=== PATIENT | female | born 1955 | race Caucasian/White ===

== ENCOUNTER → 2016-12-09 | Outpatient (CLI) | payer OTHER ==
[2016-12-09 10:07] LABS: BASO % 0.6 % (0.0-1.0); EOS # 0.1 K/mm3 (0.0-0.50); EOS % 1.1 % (0.0-3.0); LARGE UNSTAINED CELL # 0.1 K/mm3 (0.0-0.4); LARGE UNSTAINED CELL % 1.7 % (0.0-4.0); LYMPH # 2.5 K/mm3 (1.5-4.5); LYMPH % 31.6 % (24.0-44.0); MEAN CORPUSCULAR HEMOGLOBIN 30.4 pg (27.0-33.0); MEAN CORPUSCULAR HGB CONC 34.1 g/dl (32.0-36.5); MEAN CORPUSCULAR VOLUME 89.1 fl (80.0-96.0); MONO # 0.4 K/mm3 (0.0-0.8); MONO % 5.2 % (0.0-5.0); NEUTROPHILS # 4.4 K/mm3 (1.8-7.7); NEUTROPHILS % 59.9 % (36.0-66.0); PLATELET COUNT, AUTOMATED 236 k/mm3 (150-450); RED CELL DISTRIBUTION WIDTH 12.9 % (11.5-14.5); WHITE BLOOD COUNT 7.4 K/mm3 (4.0-10.0)
[2016-12-09 10:33] LABS: ALBUMIN 3.5 GM/DL (3.2-5.2); ALBUMIN/GLOBULIN RATIO 1.06 (1.00-1.93); ALKALINE PHOSPHATASE 78 U/L (45-117); ALT/SGPT 18 U/L (12-78); ANION GAP 7 MEQ/L (8-16); AST/SGOT 17 U/L (15-37); BILIRUBIN,TOTAL 0.4 MG/DL (0.2-1.0); BLOOD UREA NITROGEN 18 MG/DL (7-18); CALCIUM LEVEL 8.1 MG/DL (8.5-10.1); CARBON DIOXIDE LEVEL 30 MEQ/L (21-32); CHLORIDE LEVEL 108 MEQ/L (98-107); CHOLESTEROL LEVEL 245 MG/DL (<200); CREATININE FOR GFR 0.74 MG/DL (0.55-1.02); FREE T4 1.15 NG/DL (0.76-1.46); GLOMERULAR FILTRATION RATE > 60.0 (>51); GLUCOSE, FASTING 85 MG/DL (70-105); POTASSIUM SERUM 4.3 MEQ/L (3.5-5.1); SODIUM LEVEL 145 MEQ/L (136-145); TOTAL PROTEIN 6.8 GM/DL (6.4-8.2); TRIGLYCERIDES LEVEL 133 MG/DL (<150)
== END ==
LOC: M WUC 08:03
PROVIDERS: ATTEND Family Medicine
DX: Z13.220 Encounter for screening for lipoid disorders (principal); Z13.29 Encounter for screening for other suspected endocrine disorder

== ENCOUNTER → 2016-12-13 | Outpatient (CLI) | payer OTHER ==
--- NOTE | 2016-12-13 14:36 | REPMRS ---
Patient History The patient states she has not had a clinical breast exam in over a year. Patient is postmenopausal. No known family history of cancer. Benign stereotatic loc for ea lesion of the right breast, May 22, 2012. Took hormonal contraceptives for 2 years. Took estrogen for 2 months. Taking progesterone for 17 years. Digital Woman Screen Mammo: December 13, 2016 - Exam #: [id number] Bilateral CC and MLO view(s) were taken. Technologist: Elsie Zimmerman, Technologist Prior study comparison: December 03, 2015, digital woman screen mammo performed at [facility]. August 12, 2014, bilateral bilat screen digital mammo, performed at [facility] ([facility]). June 13, 2013, bilateral bilat screen digital mammo, performed at [facility] ([facility]). FINDINGS: The breast tissue is almost entirely fat. There has been no change in the appearance of the mammogram from the prior studies. There is a needle biopsy marker clip in the right breast. There is no interval development of dominant mass, architectural distortion, or clustered microcalcification typical of malignancy. ASSESSMENT: BI-RADS/ACR category 1 mammogram. Negative. Recommendation Routine screening mammogram of both breasts in 1 year (for women over age 40). This mammogram was interpreted with the aid of an FDA-approved computer-aided dectection system. Electronically Signed By: Humphrey Gaming MD 12/13/16 [id number]
== END ==
LOC: M WHC 13:22
PROVIDERS: ATTEND Family Medicine
DX: Z12.31 Encounter for screening mammogram for malignant neoplasm of breast (principal)

== ENCOUNTER → 2017-01-03 | Outpatient (REF) | payer OTHER | LOC: M LAB REF 15:40 | PROVIDERS: ATTEND Internal Medicine Endocrinology, Diabetes & Metabolism | DX: E04.2 Nontoxic multinodular goiter (principal) ==

== ENCOUNTER → 2018-01-12 | Outpatient (CLI) | payer OTHER | LOC: M WHC 12:17 | DX: Z12.31 Encounter for screening mammogram for malignant neoplasm of breast (principal) ==

== ENCOUNTER → 2018-01-12 | Outpatient (CLI) | payer OTHER ==
[2018-01-12 09:00] LABS: BASO % 0.6 % (0.0-1.0); EOS # 0.2 10^3/uL (0.0-0.50); EOS % 2.8 % (0.0-3.0); HEMATOCRIT 42.7 % (36.0-47.0); HEMOGLOBIN 14.5 g/dl (12.0-15.5); IMMATURE GRANULOCYTE % 0.3 % (0-3.0); LYMPH # 2.6 10^3/uL (1.5-4.5); LYMPH % 39.3 % (24.0-44.0); MEAN CORPUSCULAR HEMOGLOBIN 29.5 pg (27.0-33.0); MONO # 0.5 10^3/uL (0.0-0.8); MONO % 7.7 % (0.0-5.0); NEUTROPHILS # 3.2 10^3/uL (1.8-7.7); NEUTROPHILS % 49.3 % (36.0-66.0); PLATELET COUNT, AUTOMATED 250 10^3/uL (150-450); RED BLOOD COUNT 4.91 10^6/uL (4.00-5.40); RED CELL DISTRIBUTION WIDTH 13.1 % (11.5-14.5); WHITE BLOOD COUNT 6.5 10^3/uL (4.0-10.0)
[2018-01-12 09:24] LABS: ALBUMIN 3.5 GM/DL (3.2-5.2); ALBUMIN/GLOBULIN RATIO 1.06 (1.00-1.93); ALKALINE PHOSPHATASE 78 U/L (45-117); ALT/SGPT 26 U/L (12-78); ANION GAP 6 MEQ/L (8-16); AST/SGOT 21 U/L (7-37); BILIRUBIN,TOTAL 0.3 MG/DL (0.2-1.0); BLOOD UREA NITROGEN 18 MG/DL (7-18); CALCIUM LEVEL 8.3 MG/DL (8.8-10.2); CARBON DIOXIDE LEVEL 29 MEQ/L (21-32); CHLORIDE LEVEL 109 MEQ/L (98-107); CHOLESTEROL LEVEL 263 MG/DL (<200); CHOLESTEROL RISK RATIO 5.156 (<5); CREATININE FOR GFR 0.69 MG/DL (0.55-1.30); FREE T4 1.05 NG/DL (0.76-1.46); GLOMERULAR FILTRATION RATE > 60.0 (>45); GLUCOSE, FASTING 87 MG/DL (70-100); HDL CHOLESTEROL 51 MG/DL (>40); LDL CHOLESTEROL 191.2 MG/DL (<100); NON-HDL-C 212 MG/DL; POTASSIUM SERUM 4.1 MEQ/L (3.5-5.1); SODIUM LEVEL 144 MEQ/L (136-145); TOTAL PROTEIN 6.8 GM/DL (6.4-8.2); TRIGLYCERIDES LEVEL 104 MG/DL (<150)
== END ==
LOC: M WUC 08:11
DX: Z13.220 Encounter for screening for lipoid disorders (principal); Z13.0 Encounter for screening for diseases of the blood and blood-forming organs and certain disorders involving the immune mechanism; Z13.29 Encounter for screening for other suspected endocrine disorder

== ENCOUNTER → 2018-10-15 | Outpatient (CLI) | payer OTHER ==
[2018-10-15 13:37] LABS: HEPATITIS B CORE ANTIBODY IGM NEGATIVE (NEGATIVE); HEPATITIS B SURFACE ANTIBODY NEGATIVE (POSITIVE); HEPATITIS B SURFACE ANTIGEN NEGATIVE (NEGATIVE); RUBELLA IgG QUALITATIVE IMMUNE (IMMUNE)
[2018-10-16 08:06] LABS: RUBEOLA IgG ANTIBODY >300.0 AU/mL (Immune >29.9)
== END ==
LOC: M WUC 10:26
PROVIDERS: ATTEND Physician Assistant
DX: Z02.1 Encounter for pre-employment examination (principal)

== ENCOUNTER → 2019-01-21 | Outpatient (CLI) | payer OTHER ==
--- NOTE | 2019-01-21 09:52 | REPMRS ---
Patient History The patient states she has not had a clinical breast exam in over a year. Patient is postmenopausal. No known family history of cancer. Benign stereotatic loc for ea lesion of the right breast, May 22, 2012. Took hormonal contraceptives for 2 years. Took estrogen for 2 months. Taking progesterone for 19 years. Digital Woman Screen Mammo: January 21, 2019 - Exam #: [id number] Bilateral CC and MLO view(s) were taken. Technologist: Triny Allen Technologist Prior study comparison: January 12, 2018, digital woman screen mammo performed at [facility]. December 13, 2016, digital woman screen mammo performed at [facility]. FINDINGS: There are scattered fibroglandular densities. There has been no change in the appearance of the mammogram from the prior studies. There is a mild amount of residual fibroglandular tissue which is fairly symmetric. There is no interval development of dominant mass, architectural distortion, or clustered microcalcification suggestive of malignancy. Assessment: BI-RADS/ACR category 1 mammogram. Negative Mammogram. Recommendation Routine screening mammogram in 1 year (for women over age 40). This mammogram was interpreted with the aid of an FDA-approved computer-aided dectection system. Electronically Signed By: Arnoldo Rider MD 01/21/19 0951
== END ==
LOC: M WHC 08:51
PROVIDERS: ATTEND Family Medicine
DX: Z12.31 Encounter for screening mammogram for malignant neoplasm of breast (principal); Z78.0 Asymptomatic menopausal state

== ENCOUNTER → 2019-01-31 | Outpatient (CLI) | payer OTHER ==
[2019-01-31 12:41] LABS: BASO % 0.6 % (0.0-1.0); EOS # 0.1 10^3/uL (0.0-0.50); EOS % 0.7 % (0.0-3.0); HEMATOCRIT 43.8 % (36.0-47.0); HEMOGLOBIN 14.5 g/dl (12.0-15.5); LYMPH # 2.5 10^3/uL (1.5-4.5); LYMPH % 36.7 % (24.0-44.0); MEAN CORPUSCULAR HEMOGLOBIN 29.3 pg (27.0-33.0); MEAN CORPUSCULAR HGB CONC 33.1 g/dl (32.0-36.5); MEAN CORPUSCULAR VOLUME 88.5 fl (80.0-96.0); MONO # 0.5 10^3/uL (0.0-0.8); MONO % 7.6 % (0.0-5.0); NEUTROPHILS # 3.6 10^3/uL (1.8-7.7); NEUTROPHILS % 53.5 % (36.0-66.0); PLATELET COUNT, AUTOMATED 255 10^3/uL (150-450); RED BLOOD COUNT 4.95 10^6/uL (4.00-5.40); WHITE BLOOD COUNT 6.8 10^3/uL (4.0-10.0)
[2019-01-31 12:48] LABS: ALBUMIN 3.5 GM/DL (3.2-5.2); ALT/SGPT 34 U/L (12-78); BILIRUBIN,TOTAL 0.4 MG/DL (0.2-1.0); BLOOD UREA NITROGEN 24 MG/DL (7-18); CALCIUM LEVEL 8.7 MG/DL (8.8-10.2); CARBON DIOXIDE LEVEL 28 MEQ/L (21-32); CHLORIDE LEVEL 108 MEQ/L (98-107); CHOLESTEROL LEVEL 307 MG/DL (<200); CHOLESTEROL RISK RATIO 6.265 (<5); CREATININE FOR GFR 0.69 MG/DL (0.55-1.30); FREE T4 1.12 NG/DL (0.76-1.46); GLOMERULAR FILTRATION RATE > 60.0 (>45); GLUCOSE, FASTING 88 MG/DL (70-100); HDL CHOLESTEROL 49 MG/DL (>40); LDL CHOLESTEROL 234 MG/DL (<100); NON-HDL-C 258 MG/DL; POTASSIUM SERUM 4.4 MEQ/L (3.5-5.1); SODIUM LEVEL 141 MEQ/L (136-145); TOTAL PROTEIN 7.1 GM/DL (6.4-8.2); TRIGLYCERIDES LEVEL 120 MG/DL (<150)
== END ==
LOC: M WUC 09:47
PROVIDERS: ATTEND Family Medicine
DX: Z13.220 Encounter for screening for lipoid disorders (principal); Z13.29 Encounter for screening for other suspected endocrine disorder; Z13.0 Encounter for screening for diseases of the blood and blood-forming organs and certain disorders involving the immune mechanism

== ENCOUNTER → 2019-12-03 | Outpatient (REF) | payer OTHER ==
[2019-12-03 13:23] LABS: APPEARANCE, URINE CLOUDY (CLEAR); BACTERIA, URINE AUTO 1+ (NEGATIVE); BILIRUBIN, URINE AUTO NEGATIVE (NEGATIVE); BLOOD, URINE BLOOD 1+ (NEGATIVE); COLOR, URINE AMBER (YELLOW); GLUCOSE, URINE (UA) AUTO NEGATIVE (NEGATIVE); KETONE, URINE AUTO NEGATIVE (NEGATIVE); LEUKOCYTE ESTERASE, URINE AUTO 2+ (NEGATIVE); MUCUS, URINE SMALL (NEGATIVE); NITRITE, URINE AUTO NEGATIVE (NEGATIVE); PROTEIN, URINE AUTO NEGATIVE (NEGATIVE); RBC, URINE AUTO 19 /HPF (0-3); SPECIFIC GRAVITY URINE AUTO 1.017 (1.002-1.035); SQUAMOUS EPITHELIAL CELL UR AU 2 /HPF (0-6); WBC, URINE AUTO 22 /HPF (0-3)
== END ==
LOC: M LAB REF 12:30
PROVIDERS: ATTEND Obstetrics & Gynecology
DX: N39.0 Urinary tract infection, site not specified (principal)

== ENCOUNTER → 2019-12-25 | Outpatient (REF) | payer OTHER ==
[2019-12-25 17:17] LABS: APPEARANCE, URINE CLOUDY (CLEAR); BACTERIA, URINE AUTO NEGATIVE (NEGATIVE); BILIRUBIN, URINE AUTO NEGATIVE (NEGATIVE); BLOOD, URINE BLOOD NEGATIVE (NEGATIVE); CALCIUM OXALATE CRYSTALS LARGE; COLOR, URINE YELLOW (YELLOW); GLUCOSE, URINE (UA) AUTO NEGATIVE (NEGATIVE); KETONE, URINE AUTO NEGATIVE (NEGATIVE); LEUKOCYTE ESTERASE, URINE AUTO 1+ (NEGATIVE); MUCUS, URINE SMALL (NEGATIVE); NITRITE, URINE AUTO NEGATIVE (NEGATIVE); PROTEIN, URINE AUTO NEGATIVE (NEGATIVE); RBC, URINE AUTO 3 /HPF (0-3); SQUAMOUS EPITHELIAL CELL UR AU 1 /HPF (0-6); UROBILINOGEN, URINE AUTO 0.2 mg/dL (0.0-2.0); WBC, URINE AUTO 56 /HPF (0-3)
== END ==
LOC: M LAB REF 16:45
PROVIDERS: ATTEND Obstetrics & Gynecology
DX: N39.0 Urinary tract infection, site not specified (principal)

== ENCOUNTER → 2021-03-24 | Outpatient (CLI) | payer OTHER ==
--- NOTE | 2021-03-24 13:13 | REPPI ---
INDICATION: M54.5 LOW BACK PAIN. COMPARISON: 12/13/2005 TECHNIQUE: Multiple views of the lumbosacral spine. FINDINGS: There is no significant change in appearance of vertebral body height or alignment. There is no significant change in appearance of the disc spaces. Flexion and extension bending views show no instability. Degenerative facet joint changes are again seen bilaterally at L5-S1 and have developed at L4-5. Minimal degenerative facet joint changes are also suspected at L3-4. This has also developed. The pedicles are again seen to be intact bilaterally. There are chronic changes seen involving the imaged portion of the thoracic spine. IMPRESSION: Chronic changes as described above. <Electronically signed by Johnnie Olivia > 03/24/21 [id number]
--- NOTE | 2021-03-24 13:18 | REPPI ---
INDICATION: M25.561 PAIN IN RIGHT KNEE COMPARISON: None TECHNIQUE: Five views each knee. FINDINGS: Right findings right knee: The compartments are symmetric and relatively well maintained. There is no acute fracture or destructive osseous lesion. Left knee: The compartments are symmetric and relatively well maintained. There is no fracture or destructive osseous lesion. Radiodensities are seen in the lateral soft tissues the etiology of which is uncertain but which be correlated clinically. IMPRESSION: As above <Electronically signed by Johnnie Olivia > 03/24/21 [id number]
== END ==
LOC: M PLAIMG 11:43
PROVIDERS: ATTEND Family Medicine
DX: M54.5 Low back pain (principal); M25.561 Pain in right knee

== ENCOUNTER → 2021-04-16 | Outpatient (CLI) | payer OTHER ==
--- NOTE | 2021-04-16 12:50 | REPVR ---
PROCEDURE INFORMATION: Exam: MR Head Without Contrast Exam date and time: 04/16/2021 9:30 AM Age: 65 years old Clinical indication: Injury or trauma; Concussion/head injury; With loss of consciousness; Not specified; Injury date: 4 months ago; Patient HX: Fall head laceration 4 months prior, concussion w/o loc, visual disturbances TECHNIQUE: Imaging protocol: MR of the head without contrast. COMPARISON: No relevant prior studies available. FINDINGS: Brain: There is no extra-axial collection or intra-axial mass. Mild diffuse volume loss is within the range of normal for patient age. There are scattered foci of T2/FLAIR hyperintensity, nonspecific but typically small-vessel ischemia in this age group. There is no diffusion restriction. Sella: There is an expanded, empty sella. Cerebral ventricles: Normal. No ventriculomegaly. Bones/joints: Unremarkable. Paranasal sinuses: Normal as visualized. No acute sinusitis. Mastoid air cells: Normal as visualized. No mastoid effusion. Orbital cavity: Unremarkable. Soft tissues: Unremarkable. IMPRESSION: No acute findings. Electronically signed by: Julissa Henry On 04/16/2021 12:50:26 PM
== END ==
LOC: M PLARAD 08:22
PROVIDERS: ATTEND Family Medicine
DX: S06.0X0D Concussion without loss of consciousness, subsequent encounter (principal); H53.8 Other visual disturbances

== ENCOUNTER → 2021-04-29 | Outpatient (CLI) | payer OTHER ==
--- NOTE | 2021-04-29 11:20 | DEXAMM ---
INDICATION: SCR FOR OSTEOPOROSIS/Z13.820. COMPARISON: None. TECHNIQUE: Bone density was measured using dual-energy x-ray absorptionmetry (DEXA). FINDINGS: AP SPINE L1-L4 BMD 1.010 g/cm2 Young Adult T-Score -1.5 Age Matched Z-Score 0.0. LT FEMUR, TOTAL BMD 0.919 g/cm2 Young Adult T-Score -0.7 Age Matched Z-Score 0.4. LT NECK BMD 0.828 g/cm2 Young Adult T-Score -1.5 Age Matched Z-Score -0.1. RT FEMUR, TOTAL BMD 0.916 g/cm2 Young Adult T-Score -0.7 Age Matched Z-Score 0.4. RT NECK BMD 0.823 g/cm2 Young Adult T-Score -1.5 Age Matched Z-Score -0.2. IMPRESSION: There is low bone density of the spine. There is low bone density of the left hip. There is low bone density of the right hip. FOLLOW-UP: Recommendation for the next bone density exam: 2 years. <Electronically signed by Humphrey Gaming > 04/29/21 1111
--- NOTE | 2021-04-29 11:25 | REP ---
INDICATION: RAYO SCR MAMMO/Z12.31. COMPARISON: Multiple the latest 01/21/2019. There are no prior DBT images for comparison. TECHNIQUE: Digital screening mammography was carried out bilaterally in the CC and MLO projections and compared to the prior exams. 2D and 3D modalities were utilized. There are no prior DBT examinations for comparison. By history, the patient has no complaints of a palpable breast abnormality or other significant breast complaints. FINDINGS: The breasts are unchanged in size and shape. In the retroareolar region upper outer quadrant right breast there is a potential sahra density best seen on DBT. In the left breast centrally on both CC and MLO projections and again, best seen on DBT imaging there is a potential tiny sahra density. No other suspicious features are seen in either breasts. There is benign calcifications seen on the left status quo. There is no skin thickening or nipple retraction. The Volpara volumetric breast density pattern is b. IMPRESSION: BIRADS/ACR category 0 mammogram potential sahra densities seen in each breast as described above and best on the DBT imaging. There are no prior DBT images to review. Diagnostic digital spot compression DBT CC and MLO views are recommended bilaterally as described above. Additionally, ultrasonography may be necessary. This patient's Tyrer-Cuzick lifetime breast cancer risk assessment score is 5%. This mammogram was interpreted with the aid of an FDA-approved computer-aided detection system. The patient states she had a clinical breast exam in over a year. The patient letter being requested is M0. RECOMMENDATION: As above <Electronically signed by Johnnie Olivia > 04/29/21 1129
== END ==
LOC: M WHC 09:52
PROVIDERS: ATTEND Family Medicine
DX: Z12.31 Encounter for screening mammogram for malignant neoplasm of breast (principal); Z13.820 Encounter for screening for osteoporosis; N63.11 Unspecified lump in the right breast, upper outer quadrant; N63.20 Unspecified lump in the left breast, unspecified quadrant; R92.1 Mammographic calcification found on diagnostic imaging of breast; Z13.220 Encounter for screening for lipoid disorders; Z13.29 Encounter for screening for other suspected endocrine disorder; Z13.0 Encounter for screening for diseases of the blood and blood-forming organs and certain disorders involving the immune mechanism

== ENCOUNTER → 2021-04-29 | Outpatient (CLI) | payer OTHER ==
[2021-04-29 13:24] LABS: BASO # 0.1 10^3/uL (0.0-0.2); BASO % 0.7 % (0.0-1.0); EOS # 0.1 10^3/uL (0.0-0.5); EOS % 1.7 % (0.0-3.0); HEMATOCRIT 42.9 % (36.0-47.0); HEMOGLOBIN 14.1 g/dl (12.0-15.5); LYMPH # 2.6 10^3/uL (1.5-5.0); LYMPH % 37.6 % (24.0-44.0); MEAN CORPUSCULAR HEMOGLOBIN 29.1 pg (27.0-33.0); MEAN CORPUSCULAR HGB CONC 32.9 g/dl (32.0-36.5); MEAN CORPUSCULAR VOLUME 88.5 fl (80.0-96.0); MONO # 0.6 10^3/uL (0.0-0.8); MONO % 8.7 % (2.0-8.0); NEUTROPHILS # 3.6 10^3/uL (1.5-8.5); PLATELET COUNT, AUTOMATED 240 10^3/uL (150-450); RED BLOOD COUNT 4.85 10^6/uL (4.00-5.40)
[2021-04-29 14:03] LABS: ALBUMIN 3.7 GM/DL (3.2-5.2); ALT/SGPT 31 U/L (12-78); BILIRUBIN,TOTAL 0.4 MG/DL (0.2-1.0); BLOOD UREA NITROGEN 19 MG/DL (7-18); CARBON DIOXIDE LEVEL 28 MEQ/L (21-32); CHLORIDE LEVEL 109 MEQ/L (98-107); CHOLESTEROL LEVEL 236 MG/DL (<200); CHOLESTEROL RISK RATIO 5.363 (<5); CREATININE FOR GFR 0.77 MG/DL (0.55-1.30); FREE T4 1.18 NG/DL (0.76-1.46); GLOMERULAR FILTRATION RATE > 60.0 (>45); GLUCOSE, FASTING 96 MG/DL (70-100); HDL CHOLESTEROL 44 MG/DL (>40); LDL CHOLESTEROL 161 MG/DL (<100); NON-HDL-C 192 MG/DL; POTASSIUM SERUM 4.3 MEQ/L (3.5-5.1); SODIUM LEVEL 143 MEQ/L (136-145); TOTAL PROTEIN 6.7 GM/DL (6.4-8.2); TRIGLYCERIDES LEVEL 154 MG/DL (<150)
== END ==
LOC: M PLALAB 09:34
PROVIDERS: ATTEND Family Medicine
DX: Z13.220 Encounter for screening for lipoid disorders (principal); Z13.29 Encounter for screening for other suspected endocrine disorder; Z13.0 Encounter for screening for diseases of the blood and blood-forming organs and certain disorders involving the immune mechanism

== ENCOUNTER → 2021-05-10 | Outpatient (CLI) | payer OTHER | LOC: M WHC 07:52 | PROVIDERS: ATTEND Family Medicine | DX: N63.11 Unspecified lump in the right breast, upper outer quadrant (principal); N63.25 Unspecified lump in the left breast, overlapping quadrants | CPT/HCPCS: 76642; 77066; G0279 ==

== ENCOUNTER → 2022-07-06 | Outpatient (CLI) | payer OTHER ==
[2022-07-06 13:58] LABS: BASO % 0.5 % (0.0-1.0); EOS # 0.1 10^3/uL (0.0-0.5); EOS % 1.7 % (0.0-3.0); HEMATOCRIT 44.7 % (36.0-47.0); HEMOGLOBIN 14.8 g/dl (12.0-15.5); LYMPH # 2.4 10^3/uL (1.5-5.0); LYMPH % 36.2 % (24.0-44.0); MEAN CORPUSCULAR HEMOGLOBIN 29.6 pg (27.0-33.0); MEAN CORPUSCULAR HGB CONC 33.1 g/dl (32.0-36.5); MEAN CORPUSCULAR VOLUME 89.4 fl (80.0-96.0); MONO # 0.4 10^3/uL (0.0-0.8); MONO % 6.6 % (2.0-8.0); NEUTROPHILS # 3.6 10^3/uL (1.5-8.5); NEUTROPHILS % 54.5 % (36.0-66.0); PLATELET COUNT, AUTOMATED 244 10^3/uL (150-450); WHITE BLOOD COUNT 6.6 10^3/uL (4.0-10.0)
[2022-07-06 14:35] LABS: ERYTHROCYTE SEDIMENTATION RATE 22 mm/hr (0-30)
[2022-07-06 15:01] LABS: ALBUMIN 3.6 GM/DL (3.2-5.2); ALT/SGPT 30 U/L (12-78); BILIRUBIN,TOTAL 0.4 MG/DL (0.2-1.0); BLOOD UREA NITROGEN 17 MG/DL (7-18); C REACTIVE PROTEIN QUANTITATIV 1.18 MG/DL (0.00-0.30); CALCIUM LEVEL 8.9 MG/DL (8.8-10.2); CARBON DIOXIDE LEVEL 27 MEQ/L (21-32); CHLORIDE LEVEL 109 MEQ/L (98-107); CHOLESTEROL LEVEL 240 MG/DL (<200); CHOLESTEROL RISK RATIO 5.217 (<5); CREATININE FOR GFR 0.76 MG/DL (0.55-1.30); FREE T4 1.09 NG/DL (0.76-1.46); GLOMERULAR FILTRATION RATE > 60.0 (>45); GLUCOSE, FASTING 105 MG/DL (70-100); HDL CHOLESTEROL 46 MG/DL (>40); LDL CHOLESTEROL 170 MG/DL (<100); NON-HDL-C 194 MG/DL; POTASSIUM SERUM 4.2 MEQ/L (3.5-5.1); RHEUMATOID FACTOR QUANT < 10.0 IU/ML (<15.0); SODIUM LEVEL 141 MEQ/L (136-145); TOTAL PROTEIN 6.7 GM/DL (6.4-8.2); TRIGLYCERIDES LEVEL 118 MG/DL (<150)
[2022-07-06 16:59] LABS: THYROID PEROXIDASE ANTIBODY 34.6 U/ML (<60.0)
[2022-07-07 23:11] LABS: ANA (HEP2) Positive (.)
== END ==
LOC: M PLALAB 09:53
PROVIDERS: ATTEND Family Medicine
DX: M25.50 Pain in unspecified joint (principal); Z13.29 Encounter for screening for other suspected endocrine disorder; Z13.0 Encounter for screening for diseases of the blood and blood-forming organs and certain disorders involving the immune mechanism; Z13.220 Encounter for screening for lipoid disorders

== ENCOUNTER → 2022-07-06 | Outpatient (CLI) | payer OTHER | LOC: M WHC 10:13 | PROVIDERS: ATTEND Family Medicine | DX: Z12.31 Encounter for screening mammogram for malignant neoplasm of breast (principal) ==

== ENCOUNTER → 2022-10-06 | Outpatient (CLI) | payer MEDICARE, OTHER ==
[2022-10-06 14:44] LABS: RHEUMATOID FACTOR QUANT < 3.5 IU/ML (<14)
[2022-10-09 19:06] LABS: ANA (HEP2) Negative (.); CYCLIC CITRULLINATED PEPTIDE 2 units (0-19)
== END ==
LOC: M PLALAB 10:03
PROVIDERS: ATTEND Family Medicine
DX: R79.82 Elevated C-reactive protein (CRP) (principal); R76.0 Raised antibody titer; M25.50 Pain in unspecified joint

== ENCOUNTER → 2023-02-23 | Outpatient (CLI) | payer MEDICARE, OTHER | LOC: M PLARAD 14:25 | PROVIDERS: ATTEND Family Medicine | DX: G44.52 New daily persistent headache (NDPH) (principal) ==

== ENCOUNTER → 2023-07-11 | Outpatient (CLI) | payer MEDICARE, OTHER | LOC: M WHC 09:54 | PROVIDERS: ATTEND Family Medicine | DX: Z12.31 Encounter for screening mammogram for malignant neoplasm of breast (principal); M85.80 Other specified disorders of bone density and structure, unspecified site ==

== ENCOUNTER → 2023-07-24 | Outpatient (CLI) | payer MEDICARE, OTHER | LOC: M WUC 09:05 | PROVIDERS: ATTEND Family Medicine | DX: R05.2 Subacute cough (principal) ==

== ENCOUNTER → 2024-01-17 | Outpatient (CLI) | payer MEDICARE, OTHER ==
[~2024-01-17] MED LIST: E-Z-GAS II EFFERVESCENT PACKET (SODIUM BICARB./CITRIC ACID/SIMETHICONE) As Ordered ONE; E-Z-HD 98% w/w 340GM SUSP BTL As Ordered ONE; E-Z-PAQUE 96% w/w SUSP 176GM BTL As Ordered ONE
== END ==
LOC: M RAD 09:12
PROVIDERS: ATTEND Surgery
DX: K44.9 Diaphragmatic hernia without obstruction or gangrene (principal)

== ENCOUNTER → 2024-03-14 | Outpatient (CLI) | payer MEDICARE, OTHER ==
[~2024-03-14] MED LIST changes: +ALBU2.5V10 INH; +COLLCAP PO; +CYCL-707 PO; -E-Z-GAS II EFFERVESCENT PACKET (SODIUM BICARB./CITRIC ACID/SIMETHICONE) As Ordered ONE; -E-Z-HD 98% w/w 340GM SUSP BTL As Ordered ONE; -E-Z-PAQUE 96% w/w SUSP 176GM BTL As Ordered ONE; +MULTTAB61 PO
[2024-03-14 08:33] LABS: BASO # 0.1 10^3/uL (0.0-0.2); BASO % 1.2 % (0.0-1.0); EOS # 0.1 10^3/uL (0.0-0.5); EOS % 1.2 % (0.0-3.0); HEMATOCRIT 41.9 % (36.0-47.0); HEMOGLOBIN 13.6 g/dl (12.0-15.5); LYMPH # 1.8 10^3/uL (1.5-5.0); LYMPH % 35.4 % (24.0-44.0); MEAN CORPUSCULAR HEMOGLOBIN 29.8 pg (27.0-33.0); MEAN CORPUSCULAR HGB CONC 32.5 g/dl (32.0-36.5); MEAN CORPUSCULAR VOLUME 91.7 fl (80.0-96.0); MONO # 0.3 10^3/uL (0.0-0.8); MONO % 6.7 % (2.0-8.0); NEUTROPHILS # 2.8 10^3/uL (1.5-8.5); NEUTROPHILS % 55.1 % (36.0-66.0); PLATELET COUNT, AUTOMATED 426 10^3/uL (150-450); RED BLOOD COUNT 4.57 10^6/uL (4.00-5.40); WHITE BLOOD COUNT 5.1 10^3/uL (4.0-10.0)
[2024-03-14 09:02] LABS: CALCIUM LEVEL 8.7 MG/DL (8.3-10.6); CREATININE FOR GFR 1.06 MG/DL (0.55-1.30); GLOMERULAR FILTRATION RATE 55.2 (>45); POTASSIUM SERUM 4.7 MMOL/L (3.5-5.1)
== END ==
LOC: M EKG 07:52
PROVIDERS: ATTEND Podiatrist
DX: M20.12 Hallux valgus (acquired), left foot (principal); M19.072 Primary osteoarthritis, left ankle and foot; M79.672 Pain in left foot

== ENCOUNTER 2024-03-22 10:03 | Day surgery (SDC) | payer MEDICARE, OTHER ==
[~2024-03-22] VITALS: Ht 167.6 cm; Wt 101.6 kg
[2024-03-22] MEDS: ROPIvacaine 0.5% 30ML VIAL As Ordered ONE (11:30)
[2024-03-22] MEDS: ceFAZolin SOD 2 GM in IV 1 EA IV ONE (11:48)
[2024-03-22] MEDS ORDERED: dexmedeTOMIDine (4MCG/ML)200MCG/50ML BTL (PRECEDEX) As Ordered ONE (11:52)
[2024-03-22] MEDS ORDERED: LIDOCAINE 2% 100MG/5ML SDV (FOR ANES.) As Ordered ONE (11:52)
[2024-03-22] MEDS ORDERED: propofoL 200 MG/20 ML VIAL As Ordered ONE (11:52)
[2024-03-22] MEDS ORDERED: MIDAZOLAM INJ 2MG/2ML VIAL As Ordered ONE (11:52)
[2024-03-22] MEDS ORDERED: ACETAMINOPHEN 1000MG 100ML IV BAG As Ordered ONE (11:52)
[2024-03-22] MEDS ORDERED: ONDANSETRON 4MG 2ML VIAL As Ordered ONE (11:52)
[2024-03-22] MEDS ORDERED: fentaNYL 100 MCG/2 ML INJECTION As Ordered ONE (11:52)
[2024-03-22] MEDS: LIDOCAINE 2% MDV 20ML VIAL As Ordered ONE (11:59)
[2024-03-22] MEDS ORDERED: KETOROLAC 60MG 2ML VIAL As Ordered ONE (12:23)
[2024-03-22] MEDS ORDERED: METOCLOPRAMIDE INJ 10MG/2ML VIAL As Ordered ONE (12:23)
[2024-03-22] MEDS: GENTAMICIN SULF 80MG/2ML VIAL As Ordered ONE (12:42)
[2024-03-22] MEDS ORDERED: PHENYLephrine 500MCG 5ML (100MCG/ML) SYRINGE As Ordered ONE (13:10)
[2024-03-22] MEDS ORDERED: fentaNYL 100 MCG/2 ML INJECTION IV PRN (15:30)
[2024-03-22] MEDS ORDERED: MORPHINE 2 MG/ML 1ML VIAL IV PRN (15:30)
[2024-03-22] MEDS ORDERED: LR 1,000 ML IV SCH (15:30)
[2024-03-22] MEDS: oxyCODONE 5MG TAB PO PRN (16:17)
[2024-03-22] MEDS: ONDANSETRON 4MG 2ML VIAL IV PRN (16:18)
[2024-03-22 18:50] VITALS: BP 130/64; TEMP 98.6; O2SAT 97
== END 2024-03-22 19:10 | disposition home or self-care (01) ==
LOC: M SDC 10:03
PROVIDERS: ATTEND Podiatrist
DX: M20.12 Hallux valgus (acquired), left foot (principal); M21.6X2 Other acquired deformities of left foot; M19.072 Primary osteoarthritis, left ankle and foot; J32.9 Chronic sinusitis, unspecified; Z79.899 Other long term (current) drug therapy
CPT/HCPCS: 28122; 28297; 28730; 73630; 76000; 88300; C1713; J0131; J0665; J0690; J1100; J1580; J1885; J2250; J2371; J2405; J2765; J3010

== ENCOUNTER 2024-07-26 07:30 | Day surgery (SDC) | payer MEDICARE, OTHER ==
[~2024-07-26] VITALS: Ht 167.6 cm; Wt 103.1 kg
[~2024-07-26 07:30] MED LIST changes: +BENA25CA4 PO; +FLON1SPR; +FURO20TA2 PO
[2024-07-26] MEDS ORDERED: propofoL 200 MG/20 ML VIAL As Ordered ONE (08:12)
[2024-07-26] MEDS ORDERED: ROCURONIUM BROMIDE 50MG/5ML VIAL As Ordered ONE (08:12)
[2024-07-26] MEDS ORDERED: ONDANSETRON 4MG 2ML VIAL As Ordered ONE (08:12)
[2024-07-26] MEDS ORDERED: LIDOCAINE 2% 100MG/5ML SDV (FOR ANES.) As Ordered ONE (08:12)
[2024-07-26] MEDS ORDERED: fentaNYL 100 MCG/2 ML INJECTION As Ordered ONE (08:13)
[2024-07-26] MEDS ORDERED: MIDAZOLAM INJ 2MG/2ML VIAL As Ordered ONE (08:13)
[2024-07-26] MEDS ORDERED: PHENYLephrine 500MCG 5ML (100MCG/ML) SYRINGE As Ordered ONE (09:40)
[2024-07-26] MEDS ORDERED: ePHEDrine SULFATE 25 MG/5 ML(5MG/ML) SYRINGE As Ordered ONE (09:40)
[2024-07-26] MEDS: ceFAZolin SOD 2 GM in IV 1 EA IV ONE (10:09)
[2024-07-26] MEDS: LIDOCAINE 2% MDV 20ML VIAL As Ordered ONE (10:11)
[2024-07-26] MEDS ORDERED: ACETAMINOPHEN 1000MG 100ML IV BAG As Ordered ONE (10:26)
[2024-07-26] MEDS: GENTAMICIN SULF 80MG/2ML VIAL As Ordered ONE (10:30)
[2024-07-26] MEDS ORDERED: SUGAMMADEX SODIUM 500 MG/5 ML VIAL (BRIDION) As Ordered ONE (10:48)
[2024-07-26] MEDS ORDERED: KETOROLAC 60MG 2ML VIAL As Ordered ONE (10:49)
[2024-07-26] MEDS: ceFAZolin 2 GM/D5W 50 ML IV BAG As Ordered ONE (13:53)
[2024-07-26] MEDS ORDERED: fentaNYL 100 MCG/2 ML INJECTION IV PRN (14:45)
[2024-07-26] MEDS ORDERED: MORPHINE 2 MG/ML 1ML VIAL IV PRN (14:45)
[2024-07-26] MEDS ORDERED: LR 1,000 ML IV SCH (14:45)
[2024-07-26] MEDS: ONDANSETRON 4MG 2ML VIAL IV PRN (15:24)
[2024-07-26] MEDS: oxyCODONE 5MG TAB PO PRN (15:25)
[2024-07-26 16:16] VITALS: BP 130/74; TEMP 97.4; O2SAT 97
== END 2024-07-26 16:51 | disposition home or self-care (01) ==
LOC: M SDC 07:30
PROVIDERS: ATTEND Podiatrist
DX: M20.11 Hallux valgus (acquired), right foot (principal); M21.621 Bunionette of right foot; Z79.899 Other long term (current) drug therapy
CPT/HCPCS: 28297; 28308; 28730; 73620; C1713; J0131; J0665; J0690; J1100; J1580; J1885; J2250; J2371; J2405; J3010

== ENCOUNTER → 2025-07-22 | Outpatient (CLI) | payer MEDICARE, OTHER | LOC: M WHC 09:13 | PROVIDERS: ATTEND Family Medicine | DX: Z12.31 Encounter for screening mammogram for malignant neoplasm of breast (principal) ==